=== PATIENT | male | born 1955 | race Caucasian/White ===

== ENCOUNTER → 2018-08-04 | Outpatient (CLI) | payer BC ==
[~2018-08-04] MED LIST: AMBIEN 5 MG TABL5 M1 PO; AURALGAN EAR DR14 ML OT; IBUPROFEN 600600 M1 PO; MECLIZINE 25 MG25 M1 PO; NOHOMEMEDICATIONS; NORCO 5-325 TA1 EACH PO; PERCOCET 5-3251 EACH PO; PROTONIX40 MG PO; ZPAK PO
--- NOTE | 2018-08-13 17:30 | EXE ---
[place] [address] STRESS ECHOCARDIOGRAM Name: VETO LEY Young Room: [facility]#: [id number] Admission: 08/04/18 Attend Phys: Nando Garcia Discharge: Date of : 55 Date of Service: 08/13/181729 Report #: [id number] THIS REPORT FOR: //name// ADDENDUM APPROVED REPORT Study performed: 08/04/2018 14:48:24 Exam: Stress Echocardiogram Indication: Dyspnea Patient Location: Out-Patient Stress Nurse: Effie Martin RN Supervising Physician: Nando Jensen MD Ht: 6 ft 0 in HR: 62 bpm BP: 142/89 mmHg Medical History Cardiac Risk Factors: Hyperlipidemia Procedure The patient underwent an Exercise Stress Test using the David Protocol. Blood pressure, heart rate, and EKG were monitored. An Echocardiogram was performed by supervisor sound technician in four stages in quad fashion. At peak stress, four selected images were obtained and placed side by side with resting images for comparison. Stress Test Details Stress Test: Exercise stress testing was performed using a David protocol. HR Resting HR: 62 bpm Max Heart Rate (APMHR): 157 bpm Max HR Achieved: 145 bpm Target HR (85% APMHR): 133 bpm % of APMHR: 92 Recovery HR: 83 bpm HR response to stress: Normal HR response to stress BP Resting BP: 142/89 mmHg Max BP: 219/57 mmHg Recovery BP: 161/70 mmHg BP response to stress: Normal blood pressure response to stress. ECG Resting ECG: Sinus Rhythm Stress ECG: [place] [address] STRESS ECHOCARDIOGRAM Name: VETO LEY Room: [facility]#: [id number] Admission: 08/04/18 Attend Phys: Nando Garcia Discharge: Date of : 55 Date of Service: 08/13/18 1730 Report #: [id number] Change: None Arrhythmia: None Recovery ECG: Sinus Rhythm Recovery ST Change: None Recovery Arrhythmia: None Clinical Reason for Termination: Completed protocol Exercise duration: 9 min 20 sec Highest Stage Achieved: Stage 4: 4.2 mph at 16% grade. Exercise capacity: 10.65 METs The patient tolerated standard David protocol exercise without significant symptoms. Stress ECG Conclusion The baseline 12-lead EKG shows sinus rhythm with normal ST and T wave morphology. EKGs obtained during and post exercise stress show sinus rhythm and sinus tachycardia with no significant ST or weight changes when compared baseline. There were no significant stress-induced arrhythmias. Pre-Stress Echo The resting Echocardiogram showed normal left ventricular contractility with an estimated Ejection Fraction of about 55-60%. Trace mitral regurgitation. Trace aortic regurgitation. Trace tricuspid regurgitation. Post-Stress Echo The stress Echocardiogram showed normal left ventricular contractility with an estimated Ejection Fraction of about >70%. Conclusion Clinical Response: Non-ischemic Exercise Capacity: Average Stress ECG Response: Non-ischemic Stress Echo Images: Non-ischemic Other Information Study Quality: Good <ELECTRONICALLY SIGNED> By: Nando Jensen MD, FACC 08/13/18 1730 173 1730 Nando Jensen MD, FACC /INF
== END ==
LOC: M.CRD 14:34
DX: R06.09 Other forms of dyspnea (principal); R53.83 Other fatigue; E78.5 Hyperlipidemia, unspecified; I10 Essential (primary) hypertension